=== PATIENT | female | born 1960 | race American Indian/Alaskan Native ===

== ENCOUNTER 2017-01-30 08:31 | Outpatient (CLI) | payer BC ==
--- NOTE | 2017-01-30 11:11 | Fluoroscopy Report ---
Double contrast upper GI series. History: Dysphagia. Findings: The esophagus is normal. There was no gastroesophageal reflux or The lap band is in normal position. The stomach filled promptly and appears normal. The duodenal bulb and loop are normal. Impression: Negative study status post lap band procedure.
== END 2017-01-30 08:32 | disposition home or self-care (01) ==
LOC: FLUORO 08:31
PROVIDERS: ATTEND Specialist
DX: R13.10 Dysphagia, unspecified (principal)
CPT/HCPCS: 74247

== ENCOUNTER 2017-12-19 11:00 | Outpatient (CLI) | payer BC | END 2017-12-19 11:01 | disposition home or self-care (01) | LOC: SLR 11:00 | PROVIDERS: ATTEND Otolaryngology | DX: G47.33 Obstructive sleep apnea (adult) (pediatric) (principal); K21.9 Gastro-esophageal reflux disease without esophagitis | CPT/HCPCS: G0399 ==